=== PATIENT | female | born 1990 | race African-American/Black ===

== ENCOUNTER 2017-02-05 08:33 | Emergency (ER) | payer BC, MEDICAID ==
[~2017-02-05] VITALS: Ht 162.6 cm; Wt 76.0 kg
[~2017-02-05 08:33] MED LIST: BACT800T5 PO; CIPR500T4 PO; CLIN150 PO; DOXY100T PO; ONDA1TAB16 PO; TRAM50 PO
[2017-02-05 08:34] VITALS: BP 122/69; PULSE 76; RESP 16; TEMP 98.7; O2SAT 100
[2017-02-05] MEDS ORDERED: AZIT250T3 PO (09:55)
[2017-02-05] MEDS ORDERED: BENZ100 PO (09:55)
[2017-02-05] MEDS ORDERED: GUAISYP4 PO (09:55)
--- NOTE | 2017-02-05 09:59 | PD ---
HPI Chief Complaint: Cold / Flu Symptoms Time Seen by Provider: 09:45 Travel History International Travel<30 days: No Contact w/Intl Traveler<30days: No Traveled to known affect area: No History of Present Illness HPI 26-year-old female presents to the emergency room for evaluation of cough and cold symptoms for the past one plus weeks. Her son was just diagnosed with pneumonia and her is also sick. States she has a constant, nagging, mildly productive cough. Cough is worse at night. States she cannot eat anything because anytime she has a coughing spell, it causes her to vomit. She has associated sore throat, right ear pain, and congestion. She has had subjective fevers but not actually taken her temperature. Denies any chronic medical conditions or daily medications. PFSH Past Medical History Asthma: Yes ( A CHILD) Diminished Hearing: No Immunizations Current: Yes ?: Not LMP: 01/31/17 : 2 Para: 2 Social History Alcohol Use: Yes (SOCIALLY) Tobacco Use: Yes Substance Use: Yes ([employer]) Allergies-Medications (Allergen,Severity, Reaction): Coded Allergies: penicillin G (Unverified Allergy, Severe, 10/15/16) Reported Meds & Prescriptions Reported Meds & Active Scripts Active Guaifenesin AC Liq (Guaifenesin-Codeine Liq) 100-10 Mg/5 Ml Syrp 10 Ml PO Q6H PRN Azithromycin 250 Mg Tab 250 Mg PO DIRECTED Take 2 tabs (500 mg) on day 1 then 1 tab daily x 4 days. Tessalon Perles (Benzonatate) 100 Mg Cap 100 Mg PO TID PRN 5 Days Review of Systems Except as stated in HPI: all other systems reviewed are Neg Physical Exam Narrative GENERAL: Well-nourished, well-developed female in no acute distress. Afebrile. Ambulatory. SKIN: Focused skin assessment warm/dry. HEAD: Normocephalic. EYES: No scleral icterus. No injection or drainage. NECK: Supple, trachea midline. No JVD or lymphadenopathy. ENT: Mucosa pink and moist. No erythema or exudates. No uvular edema. No uvular , palatal, or tonsillar deviation. Airway patent. Nasal turbinates appear normal without nasal blood, purulent drainage or septal hematoma. EARS: Bilateral pinnae and external canals appear within normal limits. Bilateral tympanic membranes without erythema, dullness or perforation. CARDIOVASCULAR: Regular rate and rhythm without murmurs, gallops, or rubs. RESPIRATORY: Breath sounds equal bilaterally. No accessory muscle use. No crackles, rales, wheezes, or rhonchi. Data Data Last Documented VS Vital Signs Date Time Temp Pulse Resp B/P (MAP) Pulse Ox O2 Delivery O2 Flow Rate FiO2 02/05/17 08:34 98.7 76 16 122/69 (86) 100 MDM Medical Decision Making Medical Screen Exam Complete: Yes Emergency Medical Condition: Yes Medical Record Reviewed: Yes Differential Diagnosis Bronchitis, pneumonia, flu, strep Narrative Course 26-year-old female presents to the emergency room for evaluation of mildly productive cough, congestion, sore throat, and chills for the past 1+ weeks. Patient is coughing frequently in the ED. Lung sounds are clear and equal bilaterally. Vital signs stable. Physical exam is otherwise unremarkable. Lung sounds clear and equal bilaterally. Patient likely has viral bronchitis. Patient was told to take cough medicine for the next 3-5 days and erythematous and does not improve symptoms, to start antibiotics. She understands and agrees to plan. Diagnosis Primary Impression: Bronchitis Referrals: Primary Care Physician Additional Instructions: Take Tessalon Perles during the day for cough. Take cough syrup at night. Do not drink alcohol or drive while taking this medication. If your symptoms persist for another 3-5 days, start antibiotics. Follow-up with PCP. Return for worsening symptoms. Med/Other Pt SpecificInfo: Prescription(s) given Scripts Guaifenesin-Codeine Liq (Guaifenesin AC Liq) 100-10 Mg/5 Ml Syrp 10 ML PO Q6H Y for COUGH, #1 BOTTLE 0 Refills Prov: Cris Kelly DO 02/05/17 Azithromycin (Azithromycin) 250 Mg Tab 250 MG PO DIRECTED for Infection, #6 TAB 0 Refills Take 2 tabs (500 mg) on day 1 then 1 tab daily x 4 days. Prov: Cris Kelly DO 02/05/17 Benzonatate (Tessalon Perles) 100 Mg Cap 100 MG PO TID Y for COUGH for 5 Days, CAP 0 Refills Prov: Cris Kelly DO 02/05/17 Disposition: 01 DISCHARGE HOME Condition: Stable Connie Hernandez Feb 05, 2017 09:59
== END 2017-02-05 10:11 | disposition home or self-care (01) ==
LOC: NEPK 08:33
DX: J40 Bronchitis, not specified as acute or chronic (principal); Z72.0 Tobacco use
CPT/HCPCS: 99284